=== PATIENT | male | born 1975 | race Hispanic/Latino ===

== ENCOUNTER 2017-01-20 08:53 | Emergency (ER) | payer SELFPAY ==
[2017-01-20] MEDS ORDERED: diphenhydrAMINE HCl 50 MG/ML 1 ML VIAL ONE (09:06)
[2017-01-20] MEDS ORDERED: Ondansetron HCl/PF 4 MG/2 ML Vial ONE (09:06)
[2017-01-20 09:42] LABS: #Basophils 0.1 thou/uL (0.0-0.2); #Eosinphils 0.1 thou/uL (0.0-0.7); #Lymphocytes 2.4 thou/uL (1.20-3.40); #Monocytes 0.6 thou/uL (0.11-0.59); #Neutrophils 5.8 thou/uL (1.40-6.50); %Basophils 1.3 % (0.0-1.0); %Eosinophils 1.1 % (0.0-10.0); %Lymphocytes 26.4 % (21.0-51.0); %Monocytes 6.3 % (0.0-10.0); %Neutrophils 64.9 % (42.0-75.0); Hemoglobin 16.7 g/dL (14.0-18.0); Mean Corpuscular HGB CONC 35.4 g/dL (32.0-36.0); Mean Corpuscular Hemoglobin 31.8 pg (27.0-31.0); Mean Corpuscular Volume 89.8 fl (80.0-94.0); Platelet Count 330 thou/uL (130-400); RBC Distribution Width 11.7 % (11.5-14.5); Red Blood Cell (RBC) Count 5.24 mill/uL (4.70-6.10); White Blood Cell (WBC) Count 8.9 thou/uL (4.8-10.8)
[2017-01-20 09:45] LABS: Clarity Hazy (Clear); Specific Gravity, Urine 1.028 (1.002-1.036)
[2017-01-20 09:46] LABS: Bilirubin Negative (Negative); Blood, Urine Moderate (Negative); Glucose, Urine (Dipstick) 250 mg/dL (Negative); Leukocyte Negative (Negative); Nitrite Negative (Negative); Protein, Urine (Dipstick) 30 mg/dL (Neg-Trace); Urobilinogen 0.2 mg/dL (0.2-1.0); pH, Urine 5.5 (5.0-9.0)
[2017-01-20 09:48] LABS: ALT (SGPT) 48 U/L (8-55); AST (SGOT) 22 U/L (5-34); Albumin 4.6 g/dL (3.5-5.0); Alkaline Phosphatase 82 U/L (40-150); Anion Gap 15 mmol/L (10-20); BUN (Urea Nitrogen) 12 mg/dL (8.9-20.6); Bilirubin, Total 0.4 mg/dL (0.2-1.2); Calc. Creatinine Clearance 0 mL/min (70-130); Calcium 9.3 mg/dL (7.8-10.44); Carbon Dioxide 25 mmol/L (22-29); Chloride 103 mmol/L (98-107); Estimated GFR-MDRD Greater than 90; Globulin 2.8 g/dL (2.4-3.5); Potassium 3.8 mmol/L (3.5-5.1); Protein, Total 7.4 g/dL (6.0-8.3); Sodium 139 mmol/L (136-145)
[2017-01-20 09:49] LABS: Glucose 189 mg/dL (70-105)
[2017-01-20 09:52] LABS: Bacteria/HPF Rare-Few HPF (None Seen); Squamous Epithelial 0-3 HPF (0-3); WBC/HPF 0-3 HPF (0-3)
[2017-01-20] MEDS ORDERED: Tamsulosin HCl 0.4 MG CAP ONE (10:00)
--- NOTE | 2017-01-20 10:00 | CT ---
ABDOMEN CT WITHOUT CONTRAST PELVIC CT WITHOUT CONTRAST: Date: 01/20/17 HISTORY: Left lower quadrant pain x4 days. Intermittent pain. COMPARISON: None. TECHNIQUE: Abdomen and pelvic CT are performed without IV or oral contrast. Coronal reformatted images are subm itted for interpretation. FINDINGS: ABDOMEN CT: Nonspecific ground-glass opacity lung base. Calcified granuloma in the right lower lobe. Calcified r ight hilar lymph nodes. Heart size normal. No significant pericardial fluid. Visualized aorta has a normal caliber. Limited evaluation of the solid organs due to lack of IV contrast. Diffuse hypoattenuation of the li gian likely due to hepatic steatosis. No obvious abnormality in the solid organs. Gallbladder is unremarkable. No mesenteric mass, lymphadenopathy, free air, or free fluid. No gastrohepatic, retrocrural, or periportal lymphadenopathy. Limited evaluation of the alimentary canal due to the absence of oral contrast. Multiple normal gianni daniela small bowel loops. Ileocecal junction is normal. Normal caliber appendix. Appendicolith is noted . Scattered fecal material in a nondistended, nondilated colon. Occasional diverticulosis. No divert iculitis. Bilaterally, no nephrolithiasis or perinephric fat stranding. The right intra and extrarenal collect ing system are unremarkable. There is asymmetric mild prominence to the left intra and extrarenal co llecting system. There is a punctate, less than 2 mm, calcification in the left ureterovesical junct ion. PELVIC CT: No calcifications in the urinary bladder. No pelvic mass, lymphadenopathy, free air, or free fluid. There are no osteoblastic or osteolytic lesions. IMPRESSION: Less than 2 mm calcification in left ureterovesical junction. There is associated mild left-sided ob structive uropathy. POS: [facility]
== END 2017-01-20 10:30 | disposition home or self-care (01) ==
LOC: MADERS 08:53
DX: N20.1 Calculus of ureter (principal)
CPT/HCPCS: 74176; 80053; 81003; 81015; 85025; 94760; 96374; 96375; 96376; J1200; J2270; J2405